=== PATIENT | male | born 1955 | race Caucasian/White ===

== ENCOUNTER 2024-01-30 14:12 | Observation (INO) | payer MEDICARE, MEDICAID, SELFPAY ==
[2024-01-30] VITALS (19 sets, daily range): BP systolic 111–200; BP diastolic 48–98; PULSE 50–82; RESP 15–18; TEMP 36.4–36.8; O2SAT 96–100; BMI 20.7
--- NOTE | 2024-01-30 | IR_ITS ---
APPROVED REPORT Patient Location: Outpatient [facility]: JOYCE Veloz RT (R) PROCEDURES 1. Left heart catheterization 2. Selective coronary arteriography 3. Left ventriculography INDICATION 1. Angina pectoris, 2. Abnormal EKG SCAI INDICATION Patient is a 68-year-old white male with multiple risk factors for coronary disease who presented with pressure tightness and heaviness in the chest. Progressive. This is despite aggressive medical therapy. Secondary to this referral for left heart catheterization Informed consent was obtained prior to the procedure. COMPLICATIONS None Estimated Blood Loss: Less than 10 mls TECHNIQUE One percent lidocaine was used to anesthetize the right groin. The right femoral artery was accessed via the Seldinger technique. A 4-English sheath was placed in the right femoral artery. The JL-4 and JR-4 catheter was also used to perform left heart catheterization left ventriculogram and selective coronary angiogram. At the end of the procedure the patient was transferred to the post-op holding area in stable condition for arterial sheath removal. ANGIOGRAPHIC RESULTS The left main artery Angiographically normal The left anterior descending artery Moderate in size with moderate luminal irregularities and smooth 20% mid stenosis The circumflex artery Large in size. Eccentric 40% mid stenosis. Normal flow into the distal vessel The right coronary artery Large and dominant with smooth tubular 30 to 40% mid stenosis. Normal flow into the distal vessel The LUX ventriculogram reveals Normal left ventricular systolic function with an ejection fraction of 60% The left ventricular end-diastolic pressure 5 Right, retrograde femoral arteriogram performed. She placed in the right common femoral artery. Angio-Seal device deployed without difficulty IMPRESSION 1. Mild to moderate diffuse coronary artery disease 2. Normal left ventricular systolic function 3. Normal left ventricular end-diastolic pressure 4. Successful placement of an Angio-Seal device in the right common femoral artery PLAN 1. We will continue with aggressive medical therapy. Mild to moderate diffuse coronary disease. Normal left ventricular function. Normal left ventricular end-diastolic pressure. No intervention needed at this time. Aggressive titration of medications. Follow-up in cardiology clinic in 1 to 2 weeks for further evaluation and treatment Electronically signed by : Ger Borrero MD 01/30/2024 14:03:25
[2024-01-30 11:03] LABS: Basophils # 0.1 K/mm3 (0-0.2); Basophils % 1.1 % (0.1-2.0); Eosinophils # 0.5 K/mm3 (0.0-0.4); Eosinophils % 4.4 % (0.1-12.0); Hematocrit 47.2 % (42.0-52.0); Hemoglobin 15.5 g/dL (14.1-18.0); Lymphocytes % 25.3 % (10-50); Mean Corpuscular Hemoglobin 30.3 pg (27.0-31.2); Mean Corpuscular Volume 91.9 fl (80-94); Mean Platelet Volume 7.5 fl (7.4-10.4); Monocytes # 0.8 K/mm3 (0.1-1.0); Monocytes % 6.5 % (1.7-9.3); Neutrophils # 7.5 K/mm3 (1.8-7.8); Neutrophils % 62.8 % (37.0-80.0); Platelet Count 341 K/mm3 (142-424); Red Blood Count 5.13 M/mm3 (4.60-6.20); Red Cell Distribution Width 15.6 % (11.5-17.5)
[2024-01-30 11:05] LABS: Chloride 109 mmol/L (98-107)
[2024-01-30 11:08] LABS: Blood Urea Nitrogen 18 mg/dl (9-20); Calcium 8.9 mg/dl (8.4-10.2); Carbon Dioxide 29 mmol/L (22.0-30.0); Creatinine Clearance Estimated 44 mL/min (50-200); Estimated Glomerular Filt Rate 50 ml/min (>60); GFR (African American) 61 ML/MIN (>60); Glucose 95 mg/dl (74-100)
[2024-01-30 11:23] LABS: Sodium 140 mmol/L (136-145)
[2024-01-30] MEDS: LIDOCAINE 1% 10ML MDV 20 ML IJ (13:47)
[2024-01-30] MEDS: HEPARIN 1,000 UNITS/500ML NS (CATH LAB) 3000 UNIT IV (13:49)
[2024-01-30] MEDS: FENTANYL 100MCG/2ML VIAL 50 MCG IV (13:59)
[2024-01-30] MEDS: MIDAZOLAM HCL 1MG/1ML 5ML VIAL 1 MG IV (13:59)
--- NOTE | 2024-01-30 14:44 | HMH.PHAINT1 ---
Pharmacy Intervention Comments: MEDICATION RECONCILIATION COMPLETED ON PATIENT USING EXTERNAL FILL HISTORY FROM PHARMACY AND [facility] REPORT. -ARIAN TELLO, KRISTEND
--- NOTE | 2024-01-30 15:00 | P.HP_ITS ---
History of Present Illness *Admission Date: 01/30/24 *Reason for visit:: CAD, status post cath *History of present illness: 68-year-old male with history of CAD and hypertension who has been having unstable chest pain in the outpatient setting. Brought in for elective heart cath today. See cath report for full details. No stents deployed as he had no flow-limiting disease. Cardiology recommended aggressive medical management. Patient not safe to discharge home, needs monitoring overnight. Angio-Seal used on right femoral artery access point. No active bleeding at this time. Patient is chest pain-free and on room air. [facility] Disclaimer: The information contained in this section may have been updated after the patient was seen, as this information can be updated by other users. Medical History (Updated 01/30/24 @ 17:28 by Randall Hill MD) Neuropathy Arthritis HLD (hyperlipidemia) HTN (hypertension) Hypothyroid History of left heart catheterization (LHC) Atrial fibrillation Surgical History History of hernia surgery Family History Other Cancer No significant family history Social History Smoking Status: Current every day smoker alcohol intake: never current occupational status: retired Travel in the last 8 weeks: None Review of Systems Review of Systems Review of systems (narrative): 14 point review of systems performed, pertinent positives and negatives as per HPI Meds Home Medications and Allergies Home Medications Medication Instructions Recorded Confirmed Type evolocumab 140 mg/mL subcutaneous 140 mg SQ DIRECTED 01/30/24 01/30/24 History pen injector (Larry Jain) finasteride 5 mg tablet 5 mg PO DAILY 01/30/24 01/30/24 History fluticasone propionate 50 1 spray intranasal DAILY 01/30/24 01/30/24 History mcg/actuation nasal spray,suspension gabapentin 300 mg capsule 300 mg PO BID 01/30/24 01/30/24 History levothyroxine 50 mcg tablet 50 mcg PO DAILY 01/30/24 01/30/24 History metoprolol succinate 25 mg 25 mg PO DAILY 01/30/24 01/30/24 History tablet,extended release 24 hr mirabegron 50 mg tablet,extended 50 mg PO DAILY 01/30/24 01/30/24 History release 24 hr (Myrbetriq) nitroglycerin 0.4 mg sublingual 0.4 mg sublingual Q5MINP PRN Chest 01/30/24 01/30/24 History tablet Pain New Prescriptions to Start Prescriptions: Allergies Allergy/AdvReac Type Severity Reaction Status Date / Time atenolol Allergy Verified 01/30/24 10:45 atorvastatin [From Lipitor] Allergy Verified 01/30/24 10:45 buspirone [From BuSpar] Allergy Verified 01/30/24 10:45 paroxetine [From Paxil] Allergy Verified 01/30/24 10:45 sertraline [From Zoloft] Allergy Verified 01/30/24 10:45 Exam Data for Last 24 hours Vital signs and Labs for Last 24 Hours: Temp Pulse Resp BP Pulse Ox O2 Del Method 98.3 F 66 15 146/79 H 96 Room Air 01/30/24 11:15 01/30/24 14:35 01/30/24 14:35 01/30/24 14:35 01/30/24 14:35 01/30/24 14:35 Laboratory Results - last 24 hr 01/30/24 10:54: WBC 12.0 H, RBC 5.13, Hgb 15.5, Hct 47.2, MCV 91.9, MCH 30.3, MCHC 33.0, RDW 15.6, Plt Count 341, MPV 7.5, Neut % (Auto) 62.8, Lymph % (Auto) 25.3, [place] % (Auto) 6.5, Eos % (Auto) 4.4, Baso % (Auto) 1.1, Neut # (Auto) 7.5, Lymph # (Auto) 3.0, [place] # (Auto) 0.8, Eos # (Auto) 0.5 H, Baso # (Auto) 0.1 01/30/24 : Sodium 140, Potassium 4.0, Chloride 109 H, Carbon Dioxide 29, Anion Gap 6.0, BUN 18, Creatinine 1.40 H, Estimated Creat Clear 44, Estimated GFR 50 L , Est GFR ( Amer) 61, Glucose 95, Calcium 8.9 I & O for Last 24 hours: Intake & Output 01/27/24 01/28/24 01/29/24 01/30/24 23:59 23:59 23:59 23:59 Weight 61.689 kg Constitutional Constitutional: no acute distress, thin and cooperative *Routine HEENT Exam Head: Present normocephalic Eye: Present EOMI and PERRL ENT: Present mucous membranes moist *Routine Neck Exam Neck: Present supple; Absent lymphadenopathy *Routine Respiratory Exam Respiratory: Present prolonged expiratory phase; Absent rhonchi, wheezes or crackles *Routine Cardiovascular Exam Cardiovascular: Present RRR *Routine Abdominal Exam Abdominal: Present soft and normoactive bowel sounds; Absent tenderness *Routine Rectal Exam Rectal:: deferred *Routine Genitalia Exam Genitalia:: deferred *Routine Extremities Exam Extremities: Absent cyanosis, clubbing or edema Comments: Right inguinal insertion site clean dry and intact *Routine Skin Exam Skin: Present warm; Absent rash *Routine Neurological Exam Neurological: Present alert, oriented X3 and moving all extremities; Absent altered mental status Assessment and Plan *Assessment and plan (1) CAD (coronary artery disease): Status: Acute Category: Medical Code(s): I25.10 - Atherosclerotic heart disease of [place] coronary artery without angina pectoris (2) History of left heart catheterization (LHC): Status: Acute Category: Medical Code(s): Z98.890 - Other specified postprocedural states (3) Hypothyroid: Status: Chronic Qualifiers: Hypothyroidism type: acquired Qualified Code(s): E03.9 - Hypothyroidism, unspecified Category: Medical Code(s): E03.9 - Hypothyroidism, unspecified (4) HLD (hyperlipidemia): Status: Chronic Qualifiers: Hyperlipidemia type: mixed hyperlipidemia Qualified Code(s): E78.2 - Mixed hyperlipidemia Category: Medical Code(s): E78.5 - Hyperlipidemia, unspecified (5) HTN (hypertension): Status: Chronic Qualifiers: Hypertension type: primary hypertension Qualified Code(s): I10 - Essential (primary) hypertension Category: Medical Code(s): I10 - Essential (primary) hypertension (6) Neuropathy: Status: Acute Category: Medical Code(s): G62.9 - Polyneuropathy, unspecified (7) Tobacco use disorder: Status: Chronic Category: Medical Code(s): F17.200 - Nicotine dependence, unspecified, uncomplicated Plan Mr. Wiggins is a 68-year-old male with a history of CAD, tobacco use disorder, hypertension and hypothyroid. Presented for elective left heart cath due to unstable angina in the outpatient setting. Tolerated procedure well. Found to have nonflow-limiting disease. No stents placed but needs aggressive medical management. Given sedation and inability to safely discharge home, medicine was consulted to monitor overnight with medication adjustments and reevaluate for discharge in the morning. Discussed case with clay stain mixer, request admission. I agreed to admit for further management. Stable on room air. Problems addressed as follows: CAD Hypertension Hyperlipidemia -Viewed cath report, no stents placed. Continue medical management. Cardiology consulted to evaluate in the morning and give further recommendations -Resume metoprolol succinate 25 mg daily -Initiate irbesartan 75 mg daily given systolics in the 140s -No indication for dual antiplatelet therapy at this time. -Continue Repatha as directed BPH: Continue finasteride 5 mg daily Neuropathy: Continue gabapentin 300 mg twice daily Hypothyroid: Continue levothyroxine 50 mcg daily CBC, CMP, magnesium ordered for the morning Tobacco use disorder: Nicotine patch 21 mg daily as needed Cardiac diet Full code Heparinized to Technical Rep
[2024-01-30] MEDS: IOPAMIDOL-370 (76%);100ML BOTTLE 75 ML IV (15:01)
--- NOTE | 2024-01-30 15:14 | PC.NURSE ---
arrived by vitoer from lab coordinator
[2024-01-30] MEDS: NICOTINE 21MG/24HR PATCH 21 MG TD (18:00)
--- NOTE | 2024-01-30 18:40 | PC.NURSE ---
pt doing well, pleasant and alert and oriented. VO from [place] for a nicotine patch. b/p has been slighted elevated, md aware and pt states this is his usual b/p. cath site to rt eva caban/ janice cdi with no issues.
[2024-01-30] MEDS: GABAPENTIN 300MG CAPSULE 300 MG PO (20:38)
[2024-01-31] VITALS: BP 176/91; PULSE 64; RESP 18; TEMP 36.9; O2SAT 98
[2024-01-31] MEDS: ACETAMINOPHEN 325MG TAB 650 MG PO (00:25)
[2024-01-31] MEDS: HYDRALAZINE 20MG/ML VIAL 10 MG IV (00:25)
[2024-01-31 04:00] VITALS: BP 134/71; PULSE 64; PULSE 66; RESP 18; TEMP 36.6; O2SAT 100
--- NOTE | 2024-01-31 05:44 | PC.NURSE ---
BP AT MIDNIGHT WAS 170/91. MEDICATED WITH HYDRALAZINE 10 MG IVP. AT 0100 BP RECHECKED AND WAS 107/51. DRSG TO RIGHT GROIN C/D/I. SINUS NÉSTOR/SINUS ARRHYTHMIA NOTED ON TELE.
[2024-01-31 07:01] LABS: Basophils # 0.1 K/mm3 (0-0.2); Basophils % 0.9 % (0.1-2.0); Eosinophils # 0.4 K/mm3 (0.0-0.4); Eosinophils % 3.5 % (0.1-12.0); Hematocrit 45.1 % (42.0-52.0); Lymphocytes # 3.2 K/mm3 (0.7-4.5); Lymphocytes % 27.8 % (10-50); Mean Corpuscular HGB Conc 33.3 g/dL (31.8-35.4); Mean Corpuscular Hemoglobin 30.6 pg (27.0-31.2); Mean Corpuscular Volume 91.9 fl (80-94); Mean Platelet Volume 7.4 fl (7.4-10.4); Monocytes # 0.8 K/mm3 (0.1-1.0); Monocytes % 7.1 % (1.7-9.3); Neutrophils # 7.1 K/mm3 (1.8-7.8); Neutrophils % 60.8 % (37.0-80.0); Platelet Count 293 K/mm3 (142-424); Red Cell Distribution Width 15.7 % (11.5-17.5); White Blood Count 11.7 K/mm3 (4.8-10.8)
[2024-01-31 07:07] LABS: Alanine Aminotransferase 13 U/L (12-78); Albumin Level 3.6 g/dl (3.5-5.0); Albumin/Globulin Ratio 1.3 (1.1-1.8); Alkaline Phosphatase 66 U/L (38-126); Anion Gap 7.7 mEq/L (5-15); Aspartate Amino Transferase 21 U/L (17-59); Bilirubin,Total 0.3 mg/dl (0.2-1.3); Blood Urea Nitrogen 19 mg/dl (9-20); Calcium 8.5 mg/dl (8.4-10.2); Carbon Dioxide 24 mmol/L (22.0-30.0); Chloride 110 mmol/L (98-107); Creatinine Clearance Estimated 46 mL/min (50-200); Estimated Glomerular Filt Rate 55 ml/min (>60); GFR (African American) 66 ML/MIN (>60); Globulin 2.7 g/dL (1.3-3.2); Glucose 90 mg/dl (74-100); Magnesium 2.2 mg/dl (1.6-2.3); Potassium 3.7 mmoL/L (3.5-5.1); Sodium 138 mmol/L (136-145); Total Protein,Serum 6.3 g/dl (6.3-8.2)
[2024-01-31 08:00] VITALS: BP 164/72; PULSE 70; PULSE 71; RESP 18; TEMP 36.9; O2SAT 98
[2024-01-31] MEDS: METOPROLOL SUCCINATE XL 25MG TABLET 25 MG PO (08:26)
[2024-01-31] MEDS: LEVOTHYROXINE 50MCG (0.05MG) TAB 50 MCG PO (08:26)
[2024-01-31] MEDS: IRBESARTAN 75MG TABLET 75 MG PO (08:26)
[2024-01-31] MEDS: FINASTERIDE 5MG TABLET 5 MG PO (08:26)
[2024-01-31] MEDS: GABAPENTIN 300MG CAPSULE 300 MG PO (08:26)
--- NOTE | 2024-01-31 09:11 | P.DS_ITS ---
General Admission date:: 01/30/24 Discharge date: 01/31/24 HPI HPI HPI: 68-year-old male with history of CAD and hypertension who has been having unstable chest pain in the outpatient setting. Brought in for elective heart cath today. See cath report for full details. No stents deployed as he had no flow-limiting disease. Cardiology recommended aggressive medical management. Patient not safe to discharge home, needs monitoring overnight. Angio-Seal used on right femoral artery access point. No active bleeding at this time. Patient is chest pain-free and on room air. Hospital Course Hospital Course Hospital Course: Mr. Christensen is a 68-year-old male with a history of CAD, tobacco use disorder, hypertension and hypothyroid. Presented for elective left heart cath due to unstable angina in the outpatient setting. Tolerated procedure well. Found to have nonflow-limiting disease. No stents placed but needs aggressive medical management. Given sedation and inability to safely discharge home, medicine was consulted to monitor overnight with medication adjustments and reevaluate for discharge in the morning. Discussed case with adaptive physical educator, request admission. I agreed to admit for further management. Remained stable overnight. Continue to have elevated blood pressure. Adjustments made to regimen as follows. Stable to discharge to follow-up with adaptive physical educator in [place]. Problems addressed as follows: CAD Hypertension Hyperlipidemia -Viewed cath report, no stents placed. Patient on room air at admission. Remained stable overnight. No active bleeding from right femoral insertion site. Resumed home metoprolol succinate 25 mg daily. Initiated on irbesartan 75 mg daily. May benefit from long-acting nitrate, will defer to cardiology as an outpatient. Patient having no chest pain on day of discharge. Medication for dual antiplatelet therapy as he had no stents placed continue pain home regimen for medications. -Continue Repatha as directed BPH: Continue finasteride 5 mg daily Neuropathy: Continue gabapentin 300 mg twice daily Hypothyroid: Continue levothyroxine 50 mcg daily Counseled on tobacco cessation. Nicotine patches provided at discharge. Exam Data for Last 24 hours Vital signs and Labs for Last 24 Hours: Temp Pulse Resp BP Pulse Ox O2 Del Method 98.4 F 71 18 164/72 H 98 Room Air 01/31/24 08:00 01/31/24 08:00 01/31/24 08:00 01/31/24 08:00 01/31/24 08:00 01/31/24 08:42 Laboratory Results - last 24 hr 01/30/24 10:54: WBC 12.0 H, RBC 5.13, Hgb 15.5, Hct 47.2, MCV 91.9, MCH 30.3, MCHC 33.0, RDW 15.6, Plt Count 341, MPV 7.5, Neut % (Auto) 62.8, Lymph % (Auto) 25.3, [place] % (Auto) 6.5, Eos % (Auto) 4.4, Baso % (Auto) 1.1, Neut # (Auto) 7.5, Lymph # (Auto) 3.0, [place] # (Auto) 0.8, Eos # (Auto) 0.5 H, Baso # (Auto) 0.1 01/30/24 : Sodium 140, Potassium 4.0, Chloride 109 H, Carbon Dioxide 29, Anion Gap 6.0, BUN 18, Creatinine 1.40 H, Estimated Creat Clear 44, Estimated GFR 50 L , Est GFR ( Amer) 61, Glucose 95, Calcium 8.9 01/31/24 06:21: WBC 11.7 H, RBC 4.90, Hgb 15.0, Hct 45.1, MCV 91.9, MCH 30.6, MCHC 33.3, RDW 15.7, Plt Count 293, MPV 7.4, Neut % (Auto) 60.8, Lymph % (Auto) 27.8, [place] % (Auto) 7.1, Eos % (Auto) 3.5, Baso % (Auto) 0.9, Neut # (Auto) 7.1, Lymph # (Auto) 3.2, [place] # (Auto) 0.8, Eos # (Auto) 0.4, Baso # (Auto) 0.1, Sodium 138, Potassium 3.7, Chloride 110 H, Carbon Dioxide 24, Anion Gap 7.7, BUN 19, Creatinine 1.30 H, Estimated Creat Clear 46, Estimated GFR 55 L, Est GFR ( Amer) 66, Glucose 90, Calcium 8.5, Magnesium 2.2, Total Bilirubin 0.3, AST 21, ALT 13, Alkaline Phosphatase 66, Total Protein 6.3, Albumin 3.6, Globulin 2.7, Albumin/Globulin Ratio 1.3 I & O for Last 24 hours: Intake & Output 0701/29/24 01/30/24 01/31/24 23:59 23:59 23:59 23:59 Intake Total 480 / 1160 1160 / 1160 Output Total 0 / 0 0 / 0 Balance 480 / 1160 1160 / 1160 Weight 59.647 kg 59.874 kg Constitutional Constitutional: no acute distress, thin and chronically ill appearing *Routine HEENT Exam Head: Present normocephalic Eye: Present EOMI and PERRL ENT: Present mucous membranes moist *Routine Neck Exam Neck: Present supple; Absent lymphadenopathy *Routine Respiratory Exam Respiratory: Present prolonged expiratory phase and rhonchi; Absent wheezes or crackles *Routine Cardiovascular Exam Cardiovascular: Present RRR *Routine Abdominal Exam Abdominal: Present soft and normoactive bowel sounds; Absent tenderness *Routine Rectal Exam Patient deferred: visual exam *Routine Exam Patient deferred: penile exam *Routine Extremities Exam Extremities: Absent cyanosis, clubbing or edema Comments: Prominent joints on hands consistent with arthritis *Routine Skin Exam Skin: Present warm; Absent rash *Routine Neurological Exam Neurological: Present alert, oriented X3 and moving all extremities; Absent altered mental status Results Data Completed and Pending Labs on day of discharge: Labs from last 24 hours 01/31/24 01/30/24 01/30/24 06:21 Unknown 10:54 WBC 11.7 H 12.0 H RBC 4.90 5.13 Hgb 15.0 15.5 Hct 45.1 47.2 MCV 91.9 91.9 MCH 30.6 30.3 MCHC 33.3 33.0 RDW 15.7 15.6 Plt Count 293 341 MPV 7.4 7.5 Neut % (Auto) 60.8 62.8 Lymph % (Auto) 27.8 25.3 [place] % (Auto) 7.1 6.5 Eos % (Auto) 3.5 4.4 Baso % (Auto) 0.9 1.1 Neut # (Auto) 7.1 7.5 Lymph # (Auto) 3.2 3.0 [place] # (Auto) 0.8 0.8 Eos # (Auto) 0.4 0.5 H Baso # (Auto) 0.1 0.1 Sodium 138 140 Potassium 3.7 4.0 Chloride 110 H 109 H Carbon Dioxide 24 29 Anion Gap 7.7 6.0 BUN 19 18 Creatinine 1.30 H 1.40 H Estimated Creat Clear 46 44 Estimated GFR 55 L 50 L Est GFR ( Amer) 66 61 Glucose 90 95 Calcium 8.5 8.9 Magnesium 2.2 Total Bilirubin 0.3 AST 21 ALT 13 Alkaline Phosphatase 66 Total Protein 6.3 Albumin 3.6 Globulin 2.7 Albumin/Globulin Ratio 1.3 DS: Diagnosis Discharge Diagnosis (1) CAD (coronary artery disease): Status: Acute Code(s): I25.10 - Atherosclerotic heart disease of [place] coronary artery without angina pectoris (2) History of left heart catheterization (LHC): Status: Acute Code(s): Z98.890 - Other specified postprocedural states (3) Hypothyroid: Status: Chronic Code(s): E03.9 - Hypothyroidism, unspecified Qualifiers: Hypothyroidism type: acquired Qualified Code(s): E03.9 - Hypothyroidism, unspecified (4) HLD (hyperlipidemia): Status: Chronic Code(s): E78.5 - Hyperlipidemia, unspecified Qualifiers: Hyperlipidemia type: mixed hyperlipidemia Qualified Code(s): E78.2 - Mixed hyperlipidemia (5) HTN (hypertension): Status: Chronic Code(s): I10 - Essential (primary) hypertension Qualifiers: Hypertension type: primary hypertension Qualified Code(s): I10 - Essential (primary) hypertension (6) Neuropathy: Status: Acute Code(s): G62.9 - Polyneuropathy, unspecified (7) Tobacco use disorder: Status: Chronic Code(s): F17.200 - Nicotine dependence, unspecified, uncomplicated Meds Home Medications and Allergies Home Medications Medication Instructions Recorded Confirmed Type evolocumab 140 mg/mL subcutaneous 140 mg SQ DIRECTED 01/30/24 01/30/24 History pen injector (Larry Jain) finasteride 5 mg tablet 5 mg PO DAILY 01/30/24 01/30/24 History fluticasone propionate 50 1 spray intranasal DAILY 01/30/24 01/30/24 History mcg/actuation nasal spray,suspension gabapentin 300 mg capsule 300 mg PO BID 01/30/24 01/30/24 History levothyroxine 50 mcg tablet 50 mcg PO DAILY 01/30/24 01/30/24 History metoprolol succinate 25 mg 25 mg PO DAILY 01/30/24 01/30/24 History tablet,extended release 24 hr mirabegron 50 mg tablet,extended 50 mg PO DAILY 01/30/24 01/30/24 History release 24 hr (Myrbetriq) nitroglycerin 0.4 mg sublingual 0.4 mg sublingual Q5MINP PRN Chest 01/30/24 01/30/24 History tablet Pain irbesartan 75 mg tablet 75 mg PO DAILY 30 days #30 tabs 01/31/24 Rx nicotine 21 mg/24 hr daily 21 mg transdermal DAILYP PRN 01/31/24 Rx transdermal patch Nicotine Cravings 28 days #28 ea New Prescriptions to Start Prescriptions: irbesartan Sergio,Randall nicotine Sergio,Randall Allergies Allergy/AdvReac Type Severity Reaction Status Date / Time atenolol Allergy Verified 01/30/24 10:45 atorvastatin [From Lipitor] Allergy Verified 01/30/24 10:45 buspirone [From BuSpar] Allergy Verified 01/30/24 10:45 paroxetine [From Paxil] Allergy Verified 01/30/24 10:45 sertraline [From Zoloft] Allergy Verified 01/30/24 10:45 Discharge Plan Disposition Patient Disposition: Home, Self-Care Condition: Good Follow up Plan Follow up with: Ger Borrero MD [Consulting Physician] - 02/14/24 1:00 pm () Prescriptions/Medication Reconciliation: New nicotine 21 mg/24 hr Patch 24 Hour 21 mg transdermal DAILYP PRN (Reason: Nicotine Cravings) 28 Days Qty: 28 0RF irbesartan 75 mg Tablet 75 mg PO DAILY 30 Days Qty: 30 0RF Continued levothyroxine 50 mcg tablet 50 mcg PO DAILY Patient Comments: TAKE 1 TABLET BY MOUTH EVERY DAY nitroglycerin 0.4 mg tablet, sublingual 0.4 mg sublingual Q5MINP PRN (Reason: Chest Pain) Patient Comments: DISSOLVE 1 TABLET UNDER TONGUE EVERY 5 MINUTES FOR 3 DOSES NEEDED FOR CHEST PAIN-NO RELIEF CALL 911 gabapentin 300 mg capsule 300 mg PO BID Patient Comments: TAKE 1 CAPSULE BY MOUTH TWICE DAILY metoprolol succinate 25 mg tablet extended release 24 hr 25 mg PO DAILY Patient Comments: TAKE 1 TABLET EVERY DAY fluticasone propionate 50 mcg/actuation spray,suspension 1 spray INTRANASAL DAILY finasteride 5 mg tablet 5 mg PO DAILY mirabegron [Myrbetriq] 50 mg tablet extended release 24 hr 50 mg PO DAILY Faba [employer] 140 mg/mL pen injector 140 mg SQ DIRECTED Patient Comments: INJECT ONE (1) ML EVERY TWO (2) WEEKS BY SUBCUTANEOUSLY Rx Instructions: INJECT 1 ML EVERY 2 WEEKS Problem Reconciliation Problems Reviewed?: Yes Patient Discharge Instructions ACTIVITY: Continue current activity DIET: continue same diet Patient Instructions: DI for Cardiac Catheterization, DI for Surgical Site Infection Providers Primary Care Provider: Kandice Ogden Admit Provider: Randall Hill Attending Provider: Randall Hill
--- NOTE | 2024-02-01 14:36 | CARE MANAGER ---
Patient called back related to hospital discharge. He states he is doing well. He denies questions or concerns. He does report his blood pressure being low but he has already contacted his homeland security program specialist and they have told him to hold his blood pressure medication until Sunday. He is going to continue to check it. He denies any other questions or concerns at this time. VALERIY Nash
== END 2024-01-31 11:10 | disposition home or self-care (01) ==
LOC: 2ND 14:13
PROVIDERS: Internal Medicine Cardiovascular Disease; Admitting Provider Internal Medicine Adolescent Medicine; PCP Nurse Practitioner Family; Visit Provider Internal Medicine Adolescent Medicine
DX: I25.118 Atherosclerotic heart disease of native coronary artery with other forms of angina pectoris (principal); E03.9 Hypothyroidism, unspecified; E78.2 Mixed hyperlipidemia; I10 Essential (primary) hypertension; G62.9 Polyneuropathy, unspecified; F17.210 Nicotine dependence, cigarettes, uncomplicated; Z79.899 Other long term (current) drug therapy; I48.91 Unspecified atrial fibrillation; Z86.16 Personal history of COVID-19; R06.02 Shortness of breath
CPT/HCPCS: 36415; 80048; 80053; 83735; 85025; 93458; 99152; C1725; C1760; C1769; G0378; J1644; J2250; J3010; Q9967